=== PATIENT | female | born 1955 | race Caucasian/White ===

== ENCOUNTER 2023-08-11 08:23 | Inpatient (IN) | payer MEDICARE, SELFPAY ==
[2023-08-11] VITALS (44 sets, daily range): BP systolic 106–148; BP diastolic 40–108; PULSE 60–123; RESP 16–22; TEMP 36.1–37.2; O2SAT 83–97; BMI 23.5; BMI 25.6
--- NOTE | 2023-08-11 08:55 | CRLHL7_ITS ---
For Patients: As a result of the Century Cures Act, medical imaging exams and procedure reports are released immediately into your electronic medical record. You may view this report before your referring provider. If you have questions, please contact your health care provider. INDICATION: recent facial procedure, difficulty breathing for 2 days TECHNIQUE: CT soft tissue of the neck was acquired with IV contrast. COMPARISON: None. FINDINGS: Dental amalgam streak artifact and motion artifact limits evaluation of adjacent structures. Skull base: Unremarkable. Pharynx/Larynx/Trachea: Small soft tissue nodule involving the right lateral glossoepiglottic/aryepiglottic fold, measuring 8 x 4 mm (series 3, image 42). This results in mild effacement of the right vallecula. Airway is patent. Adjacent soft tissues are normal. Salivary glands: Unremarkable. Thyroid gland: Unremarkable. No significant nodules. Lymph nodes: No lymphadenopathy. Vessels: Atherosclerotic stenosis of the bilateral carotid bifurcations. Bones: Unremarkable for age. Misc: No inflammation, mass or fluid collection. Lung apices: Mild pulmonary emphysema. IMPRESSION: Dental amalgam streak artifact and motion artifact limits evaluation of adjacent structures. Small soft tissue nodule involving the right lateral glossoepiglottic/aryepiglottic fold, measuring 8 x 4 mm (series 3, image 42). This results in mild effacement of the right vallecula. Differential includes polyp or lesion. Recommend correlation with direct visualization. Otherwise, no evidence of acute abnormality. Findings discussed with Dr. Dejesus at 1040 am. Please note that all CT scans at this facility use dose modulation, iterative reconstruction, and/or weight-based dosing when appropriate to reduce radiation dose to as low as reasonably achievable. Dictated by Hector Vyas MD @ 08/11/2023 10:40:36 AM (Electronically Signed)
--- NOTE | 2023-08-11 08:56 | ED.NURSE ---
Patient sats dropped from 92% in triage to 86% in exam room. Patient wants to sit straight up and does not want oxygen at this time as she states she is too dry.
[2023-08-11 09:13] LABS: Basophils Absolute Auto 0.02 K/uL (0.00-0.30); Basophils Percent Auto 0.2 % (0.0-3.0); Hematocrit 45.6 % (33.0-51.0); Hemoglobin* 15.1 gm/dL (12.0-16.0); Immature Granulocytes Abs Auto 0.01 K/uL (0.00-0.30); Immature Granulocytes Pct Auto 0.1 %; Lymphocytes Percent Auto 11.7 % (20-44); Mean Corpuscular HGB Conc 33 gm/dL (32-36); Mean Corpuscular Hemoglobin 31 pg (26-34); Mean Corpuscular Volume 92 fL (80-100); Monocytes Percent Auto 6.8 % (0.0-11.0); Neutrophils Percent Auto 81.2 % (42.0-72.0); Platelet Count* 147 K/uL (140-440); RDW Coefficient of Variation % 13.4 % (11.5-15.5); Red Blood Count 4.95 m/uL (4.00-5.20); White Blood Count* 8.71 K/uL (4.50-11.00)
[2023-08-11 09:39] LABS: Slide Review Reflex No
[2023-08-11 09:41] LABS: Chloride* 98 mmol/L (96-114); Sodium* 137 mmol/L (135-149)
[2023-08-11 09:42] LABS: Potassium* 3.8 mmol/L (3.6-5.1)
[2023-08-11 09:44] LABS: Creatinine* 0.7 mg/dL (0.5-1.5); Est. Creatinine Clearance* 53.81; Estimated Glomerular Filt Rate 95 ml/min
[2023-08-11 09:45] LABS: Anion Gap 14 mEq/L (7-15); Blood Urea Nitrogen* 8 mg/dL (7-30); Calcium* 8.7 mg/dL (8.4-10.6); Carbon Dioxide* 25 mmol/L (20-32); Glucose* 124 mg/dL (60-115)
--- NOTE | 2023-08-11 10:10 | ED.GENADULT ---
HPI - General Adult General Chief complaint: Ear/Nose/Throat Problem Stated complaint: choking Time Seen by Provider: 08/11/23 08:27 Source: patient Mode of arrival: ambulatory Limitations: no limitations History of Present Illness HPI narrative: patient is 67-year-old female presenting to the emergency department for sore throat. She states about 11 days ago she had surgery on her left zygomatic region due to necrotic bone. She is said she recovered from the procedure well without issues. She knows now with past couple of days her throat has been feeling very tight in that she states is difficult to breathe. Symptoms have been getting worse for the past couple days. Her also notes that her voice has become more scratchy and sounds very different compared to her normal. Patient denies fevers, chills, chest pain, weakness, numbness, abdominal pain, lightheadedness, dizziness. Has never had issues with this before. she notes for the procedure she was not intubated and finished antibiotics 8 days ago. Related Data Allergies Allergy/AdvReac Type Severity Reaction Status Date / Time hydrocodone AdvReac Unknown Verified 08/11/23 08:32 Review of Systems Status of ROS: Reports: 10 or more systems reviewed and unremarkable except as noted in History and below PFSH PFSH Social History Non-prescribed substance use: denies use Exam Narrative: Exam Narrative: Const: Well-nourished, Well-developed, in mild distress Eyes: PERRL, no conjunctival injection, and symmetrical lids HENT: Atraumatic external nose and ears. Moist mucous membranes. uvula midline, normal appearing tonsils Neck: Symmetric, trachea midline, No thyromegaly. CVS: RRR, No murmurs or gallops. Peripheral pulses 2+ and equal in all extremities RESP: Mildly increased respiratory effort. Clear to auscultation bilaterally. GI: Nontender/Nondistended, No rebound or guarding. MSK:Extremities w/o deformity, Normal Active ROM Skin: Warm, Dry. No rashes or lesions. Neuro: Normal Muscle tone, No focal neurological deficits. Psych: Awake, Alert, & Oriented x3. Appropriate mood and affect. Const: Vital Signs, click to edit/add: Vital Signs - 24 hr 08/11/23 08:32 08/11/23 08:54 08/11/23 08:55 Temperature 99 F Pulse Rate 105 H Pulse Rate [Pulse Oximeter] 116 H Respiratory Rate 18 Blood Pressure Blood Pressure [Ri ght Upper Arm] 142/79 H Pulse Oximetry 92 90 89 Oxygen Delivery Me thod Room Air Oxygen Flow Rate 08/11/23 09:00 08/11/23 09:09 08/11/23 09:35 Temperature Pulse Rate 105 H 97 Pulse Rate [Pulse Oximeter] Respiratory Rate Blood Pressure 129/61 Blood Pressure [Ri ght Upper Arm] Pulse Oximetry 89 86 L 85 L Oxygen Delivery Me thod Oxygen Flow Rate 08/11/23 09:36 08/11/23 09:45 08/11/23 10:00 Temperature Pulse Rate 96 96 97 Pulse Rate [Pulse Oximeter] Respiratory Rate Blood Pressure Blood Pressure [Ri ght Upper Arm] Pulse Oximetry 86 L 85 L 87 L Oxygen Delivery Me thod Oxygen Flow Rate 08/11/23 10:02 08/11/23 10:15 08/11/23 10:30 Temperature Pulse Rate 95 107 H 102 H Pulse Rate [Pulse Oximeter] Respiratory Rate Blood Pressure 133/59 L Blood Pressure [Ri ght Upper Arm] Pulse Oximetry 87 L 91 90 Oxygen Delivery Me thod Oxygen Flow Rate 08/11/23 10:32 08/11/23 10:45 08/11/23 11:02 Temperature Pulse Rate 91 91 98 Pulse Rate [Pulse Oximeter] Respiratory Rate Blood Pressure 148/59 H 135/108 H Blood Pressure [Ri ght Upper Arm] Pulse Oximetry 85 L 89 90 Oxygen Delivery Me thod Oxygen Flow Rate 08/11/23 11:03 08/11/23 11:15 08/11/23 11:30 Temperature Pulse Rate 99 98 102 H Pulse Rate [Pulse Oximeter] Respiratory Rate Blood Pressure Blood Pressure [Ri ght Upper Arm] Pulse Oximetry 92 90 88 Oxygen Delivery Me thod Oxygen Flow Rate 08/11/23 11:31 08/11/23 11:45 08/11/23 12:00 Temperature Pulse Rate 101 H 99 98 Pulse Rate [Pulse Oximeter] Respiratory Rate Blood Pressure 140/58 H Blood Pressure [Ri ght Upper Arm] Pulse Oximetry 89 90 83 L Oxygen Delivery Me thod Oxygen Flow Rate 08/11/23 12:02 08/11/23 12:07 Temperature Pulse Rate 93 Pulse Rate [Pulse Oximeter] Respiratory Rate Blood Pressure 112/54 L Blood Pressure [Ri ght Upper Arm] Pulse Oximetry 85 L 92 Oxygen Delivery Me thod Nasal Cannula Oxygen Flow Rate 2 Course Vital Signs Vital signs: Initial Vital Signs Temperature 99 F 08/11/23 08:32 Temperature Source Temporal Artery Scan 08/11/23 08:32 Pulse Rate 116 H 08/11/23 08:32 Respiratory Rate 18 08/11/23 08:32 Blood Pressure 142/79 H 08/11/23 08:32 Blood Pressure Mean 100 08/11/23 08:32 Pulse Oximetry 92 08/11/23 08:32 Oxygen Delivery Method Room Air 08/11/23 08:32 Vital Signs Temperature 99 F 08/11/23 08:32 Pulse Rate 116 H 08/11/23 08:32 Respiratory Rate 18 08/11/23 08:32 Blood Pressure 142/79 H 08/11/23 08:32 Pulse Oximetry 92 08/11/23 08:32 Oxygen Delivery Method Room Air 08/11/23 08:32 Temperature 99 F 08/11/23 08:32 Pulse Rate 93 08/11/23 12:02 Respiratory Rate 18 08/11/23 08:32 Blood Pressure 112/54 L 08/11/23 12:02 Pulse Oximetry 92 08/11/23 12:07 Oxygen Delivery Method Nasal Cannula 08/11/23 12:07 Oxygen Flow Rate 2 08/11/23 12:07 Medications Administered Medications: Discontinued Medications Generic Name Dose Route Start Last Admin Trade Name Freq PRN Reason Stop Dose Admin Albuterol 5 mg 08/11/23 11:37 08/11/23 12:25 Albuterol Sulfate 2.5 Mg/3 Ml Vial.Neb NEB 08/11/23 11:38 5 mg ONCE ONE Administration Albuterol/Ipratropium 1 neb 08/11/23 10:41 08/11/23 11:10 Iprat-Albut 0.5-2.5 Mg/3 Ml Neb IH 08/11/23 10:42 1 neb ONCE ONE Administration Dexamethasone 10 mg 08/11/23 08:56 08/11/23 11:10 Dexamethasone 4 Mg/Ml Vial IV 08/11/23 08:57 10 mg ONCE ONE Administration Sodium Chloride 1,000 mls @ 1,000 mls/hr 08/11/23 10:30 08/11/23 11:39 0.9 % Sodium Chloride 1000 Ml IV 08/11/23 11:29 Infused .Q1H [facility] Infusion Medical Decision Making MDM Narrative Medical decision making narrative: Patient is a 67-year-old female presenting for shortness of breath. She states it feels like her throat is closing up witnesses began worse for the past couple days. At this point there is concern for deeper neck space issue or swelling. She again states it feels like it is all in her neck and throat fall her lungs feel fine. I will give her dexamethasone to help with any swelling if there is any. I do not see any signs of peritonsillar abscess. She is satting 88-89% on room air but will go up to 91% when she is not talking. Considering she does have an altered voice also we will do immediate CT scan of the neck with IV contrast. She has no history of kidney disease outside not concerned but that at this time. CT of the neck shows no acute concerning abnormalities. There is a small soft tissue nodule involving the right lateral glossoepiglottic/aryepiglottic fold that is not causing any airway compromise. Was brought to the patient again she says her neck is sore now and she still feels like her throat is closing up. There is no signs of deep neck space abscesses at this time so we will broaden our workup. She is a previous smoker and I did see some emphysema and a neck CT so we will order DuoNebs. Also ordered COVID/flu/RSV, mono, strep test. CBC and BMP showed no concerning abnormalities. [place] and strep were negative. Chest x-ray returned showing possible atelectasis versus pneumonia left lower lobe of her lungs. After DuoNeb she was feeling better but still satting low on room air. She is given another breathing treatment. She is currently satting 94% on 2 L nasal cannula. To better differentiate she has a superimposed pneumonia not a chest CT was ordered which showed atelectasis. Most likely all of her symptoms are secondary to COVID. She will be admitted to the hospitalist service Lab Data Labs: Lab Results 08/11/23 08/11/23 Range/Units 08:48 11:05 WBC 8.71 (4.50-11.00) K/uL RBC 4.95 (4.00-5.20) m/uL Hgb 15.1 (12.0-16.0) gm/dL Hct 45.6 (33.0-51.0) % MCV 92 (80-100) fL MCH 31 (26-34) pg MCHC 33 (32-36) gm/dL RDW Coeff of Talia 13.4 (11.5-15.5) % Plt Count 147 (140-440) K/uL Neut % (Auto) 81.2 H (42.0-72.0) % Lymph % (Auto) 11.7 L (20-44) % [place] % (Auto) 6.8 (0.0-11.0) % Eos % (Auto) 0.0 (0.0-7.0) % Baso % (Auto) 0.2 (0.0-3.0) % Neut # (Auto) 7.10 H (1.7-7.0) K/uL Lymph # (Auto) 1.00 (0.90-2.90) K/uL [place] # (Auto) 0.60 (0.00-0.90) K/UL Eos # (Auto) 0.00 (0.00-0.50) K/uL Baso # (Auto) 0.02 (0.00-0.30) K/uL Abs Immat Gran (auto) 0.01 (0.00-0.30) K/uL Imm/Tot Granulo (auto) 0.1 % Sodium 137 (135-149) mmol/L Potassium 3.8 (3.6-5.1) mmol/L Chloride 98 (96-114) mmol/L Carbon Dioxide 25 (20-32) mmol/L Anion Gap 14 (7-15) mEq/L BUN 8 (7-30) mg/dL Creatinine 0.7 (0.5-1.5) mg/dL Estimated Creat Clear 53.81 Estimated GFR 95 ml/min Glucose 124 H (60-115) mg/dL Calcium 8.7 (8.4-10.6) mg/dL SARS-CoV-2 (PCR) POSITIVE SARS-CoV-2 A (Negative) Monoscreen Negative (Negative) Influenza Type A (PCR) Negative PCR FLU A (Negative) Influenza Type B (PCR) Negative PCR FLU B (Negative) RSV (PCR) Negative PCR RSV (Negative) Group A Strep DNA NOT DETECTED (Not Detectd) Imaging Data Soft tissue neck CT: Radiologist's impression: Dental amalgam streak artifact and motion artifact limits evaluation of adjacent structures. Small soft tissue nodule involving the right lateral glossoepiglottic/aryepiglottic fold, measuring 8 x 4 mm (series 3, image 42). This results in mild effacement of the right vallecula. Differential includes polyp or lesion. Recommend correlation with direct visualization. Otherwise, no evidence of acute abnormality. Findings discussed with Dr. Dejesus at 1040 am. Please note that all CT scans at this facility use dose modulation, iterative reconstruction, and/or weight-based dosing when appropriate to reduce radiation dose to as low as reasonably achievable. Dictated by Hector Vyas MD @ 08/11/2023 10:40:36 AM Chest x-ray: Radiologist's impression: Atelectatic changes and/or infiltrates left lower lobe. Dictated by Jessika Dutta MD @ 08/11/2023 11:43:[address] scan - chest: Radiologist's impression: 1. Atelectatic changes left lung base. 2. No acute pneumonic infiltrates. 3. Negative unenhanced chest CT. Please note that all CT scans at this facility use dose modulation, iterative reconstruction, and/or weight-based dosing when appropriate to reduce radiation dose to as low as reasonably achievable. Dictated by Jessika Dutta MD @ 08/11/2023 1:35:40 PM Discharge Plan Discharge Follow Up/Referrals: Sasha Vargas MD [Primary Care Provider] -
[2023-08-11] MEDS: 0.9 % SODIUM CHLORIDE 1000 ml 1,000 ML IV (10:36)
--- NOTE | 2023-08-11 10:41 | CRLHL7_ITS ---
For Patients: As a result of the Cures Act, medical imaging exams and procedure reports are released immediately into your electronic medical record. You may view this report before your referring provider. If you have questions, please contact your health care provider. INDICATION: Shortness of breath. COMPARISON: CT neck for soft tissues with intravenous contrast same date. TECHNIQUE: Two-view chest. FINDINGS: Atelectatic changes and/or minimal infiltrates left lower lobe. Normal size cardiac silhouette. No evidence of pleural effusion. No evidence of CHF. IMPRESSION: Atelectatic changes and/or infiltrates left lower lobe. Dictated by Jessika Dutta MD @ 08/11/2023 11:43:55 AM (Electronically Signed)
[2023-08-11] MEDS: IPRAT-ALBUT 0.5-2.5 MG/3 ML NEB 1 NEB IH (11:10)
[2023-08-11] MEDS: dexAMETHasone 4 MG/ML VIAL 10 MG IV (11:10)
[2023-08-11 11:21] LABS: Mono Screen* Negative (Negative)
[2023-08-11 11:36] LABS: Strep A DNA Probe* NOT DETECTED (Not Detectd)
[2023-08-11 11:50] LABS: PCR FLU A Negative PCR FLU A (Negative); PCR FLU B Negative PCR FLU B (Negative); PCR RSV Negative PCR RSV (Negative)
[2023-08-11 12:01] LABS: SARS PCR* POSITIVE SARS-CoV-2 (Negative)
--- NOTE | 2023-08-11 12:11 | CRLHL7_ITS ---
For Patients: As a result of the Cures Act, medical imaging exams and procedure reports are released immediately into your electronic medical record. You may view this report before your referring provider. If you have questions, please contact your health care provider. INDICATION: Shortness of breath; COVID-19 pneumoniae; possible infiltrates. COMPARISON: CT chest without intravenous contrast September 18, 2018; CT soft tissue neck with intravenous contrast 08/11/2023; two-view chest 08/11/2023. TECHNIQUE: CT chest without intravenous contrast; coronal and sagittal reformats. FINDINGS: No abnormal mediastinal or hilar lymphadenopathy. Coronary artery calcifications. Normal size cardiac silhouette without any pericardial effusion. Platelike atelectasis left lung base. No obvious pneumonic infiltrates on either side. No pneumothorax or pleural effusion. Limited CT through the upper abdomen is unremarkable. IMPRESSION: 1. Atelectatic changes left lung base. 2. No acute pneumonic infiltrates. 3. Negative unenhanced chest CT. Please note that all CT scans at this facility use dose modulation, iterative reconstruction, and/or weight-based dosing when appropriate to reduce radiation dose to as low as reasonably achievable. Dictated by Jessika Dutta MD @ 08/11/2023 1:35:40 PM (Electronically Signed)
[2023-08-11] MEDS: ALBUTEROL SULFATE 2.5 MG/3 ML VIAL.NEB 5 MG NEB (12:25)
--- NOTE | 2023-08-11 14:55 | PM.IMHP1 ---
Hospitalist- H&P: [facility] History of Present Illness Date Seen: 08/11/23 Chief complaint: choking Narrative: Delphine Padilla is a 67 year old female admitted through the emergency department with 2 to 3 day history of illness. she was in her usual state of good health until Sunday evening when she had some chills. morning she woke up and she reported that she had a bad sore throat. It continued to get worse over the subsequent 2 days. She did not check her temperature. She did develop a little bit of cough. She has not been short of breath. her sore throat has continued to worsen and she has not been able to eat or drink due to a sore throat. When she tries to eat she feels like she swallows food or liquid and it gets into her throat and then she just brings it back up again. She has not otherwise had vomiting. She does not have abdominal pain. She does not feel like she is having trouble breathing or tightness in her airway. She has some hoarseness in her voice. She reports she is generally healthy. She does not have a diagnosis of heart or lung disease. No previous history of thromboembolism. She does have a 30 year history of smoking and quit about 15 years ago. Initial emergency department evaluation included CT of the soft tissues of the neck to evaluate the report of severe throat and swallowing difficulties. This did show a small 4 x 8 mm lesion in the glosso epiglottic fold but no obstruction and no other acute abnormality. Chest CT showed no acute abnormalities. She was seen to be persistently hypoxic requiring supplemental oxygen. COVID test was positive. She was unable to tolerate any oral food or fluid. 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 Bone was resected and replaced with filler material. She was treated with penicillin for 10 days after this. She reports feeling fine with no symptoms of pain from that. Review of Systems Narrative: Other than the symptoms of the last 2-3 days she reports she was generally feeling well recently. Review of medical records indicates he has had a previous history of lymphoma and hypothyroidism. Not getting treatment for either of those now. [facility] Medical History (Updated 08/11/23 @ 15:25 by Lamont Weber MD) History of diverticulitis ?Z87.19 - Personal history of other diseases of the digestive system (ICD-10) Hypothyroidism ?E03.9 - Hypothyroidism, unspecified (ICD-10) Large B-cell lymphoma ?C85.10 - Unspecified B-cell lymphoma, unspecified site (ICD-10) Surgical History (Updated 08/11/23 @ 15:18 by Lamont Weber MD) History of abdominal hysterectomy ?Z90.710 - Acquired absence of both cervix and uterus (ICD-10) Social History (Updated 08/11/23 @ 15:19 by Lamont Weber MD) Narrative: she lives with her in [place]. She quit smoking about 15 years ago after a 30 pack-year history. She does not drink alcohol. Code status is DNR. is healthcare power of trade mark attorney. Non-prescribed substance use: denies use Meds Home Medications and Allergies Allergies Allergy/AdvReac Type Severity Reaction Status Date / Time hydrocodone AdvReac Unknown Verified 08/11/23 08:32 Exam Narrative: Exam Narrative: She is alert and appears in no distress. Mild hoarseness to her voice noted. No stridor or respiratory distress. Eyes normal. No facial asymmetry. Oropharynx is unremarkable. Minimal erythema the posterior oropharynx. Open airway. No stridor. Neck is supple with tenderness bilaterally in her proximal anterior cervical nodes but without obvious adenopathy. No other mass. Respirations are clear to auscultation. No wheezing rales or rhonchi. Cardiovascular: S1, S2, regular rate and rhythm. No murmur gallop or rub. Abdomen: Bowel sounds active. Abdomen is soft without tenderness or mass. External genitalia normal. Extremities normal. She has intact pulses and sensation. Good capillary refill. She moves all 4 extremities well. No rash. No edema. Const: Vital Signs, click to edit/add: Vital Signs - 24 hr 08/11/23 08:32 08/11/23 08:54 08/11/23 08:55 Temperature 99 F Pulse Rate 105 H Pulse Rate [Pulse Oximeter] 116 H Respiratory Rate 18 Blood Pressure Blood Pressure [Ri ght Upper Arm] 142/79 H Pulse Oximetry 92 90 89 Oxygen Delivery Me thod Room Air Oxygen Flow Rate 08/11/23 09:00 08/11/23 09:09 08/11/23 09:35 Temperature Pulse Rate 105 H 97 Pulse Rate [Pulse Oximeter] Respiratory Rate Blood Pressure 129/61 Blood Pressure [Ri ght Upper Arm] Pulse Oximetry 89 86 L 85 L Oxygen Delivery Me thod Oxygen Flow Rate 08/11/23 09:36 08/11/23 09:45 08/11/23 10:00 Temperature Pulse Rate 96 96 97 Pulse Rate [Pulse Oximeter] Respiratory Rate Blood Pressure Blood Pressure [Ri ght Upper Arm] Pulse Oximetry 86 L 85 L 87 L Oxygen Delivery Me thod Oxygen Flow Rate 08/11/23 10:02 08/11/23 10:15 08/11/23 10:30 Temperature Pulse Rate 95 107 H 102 H Pulse Rate [Pulse Oximeter] Respiratory Rate Blood Pressure 133/59 L Blood Pressure [Ri ght Upper Arm] Pulse Oximetry 87 L 91 90 Oxygen Delivery Me thod Oxygen Flow Rate 08/11/23 10:32 08/11/23 10:45 08/11/23 11:02 Temperature Pulse Rate 91 91 98 Pulse Rate [Pulse Oximeter] Respiratory Rate Blood Pressure 148/59 H 135/108 H Blood Pressure [Ri ght Upper Arm] Pulse Oximetry 85 L 89 90 Oxygen Delivery Me thod Oxygen Flow Rate 08/11/23 11:03 08/11/23 11:15 08/11/23 11:30 Temperature Pulse Rate 99 98 102 H Pulse Rate [Pulse Oximeter] Respiratory Rate Blood Pressure Blood Pressure [Ri ght Upper Arm] Pulse Oximetry 92 90 88 Oxygen Delivery Me thod Oxygen Flow Rate 08/11/23 11:31 08/11/23 11:45 08/11/23 12:00 Temperature Pulse Rate 101 H 99 98 Pulse Rate [Pulse Oximeter] Respiratory Rate Blood Pressure 140/58 H Blood Pressure [Ri ght Upper Arm] Pulse Oximetry 89 90 83 L Oxygen Delivery Me thod Oxygen Flow Rate 08/11/23 12:02 08/11/23 12:03 08/11/23 12:07 Temperature Pulse Rate 93 95 Pulse Rate [Pulse Oximeter] Respiratory Rate Blood Pressure 112/54 L Blood Pressure [Ri ght Upper Arm] Pulse Oximetry 85 L 88 92 Oxygen Delivery Me thod Nasal Cannula Oxygen Flow Rate 2 08/11/23 12:15 08/11/23 12:30 08/11/23 12:32 Temperature Pulse Rate 100 100 102 H Pulse Rate [Pulse Oximeter] Respiratory Rate Blood Pressure 132/48 L Blood Pressure [Ri ght Upper Arm] Pulse Oximetry 94 93 92 Oxygen Delivery Me thod Oxygen Flow Rate 08/11/23 12:45 08/11/23 13:00 08/11/23 13:02 Temperature Pulse Rate 111 H 123 H 121 H Pulse Rate [Pulse Oximeter] Respiratory Rate Blood Pressure 130/59 L Blood Pressure [Ri ght Upper Arm] Pulse Oximetry 95 97 95 Oxygen Delivery Me thod Oxygen Flow Rate 08/11/23 13:15 08/11/23 13:30 08/11/23 13:32 Temperature Pulse Rate 107 H 114 H 107 H Pulse Rate [Pulse Oximeter] Respiratory Rate Blood Pressure 147/73 H Blood Pressure [Ri ght Upper Arm] Pulse Oximetry 92 94 94 Oxygen Delivery Me thod Oxygen Flow Rate 08/11/23 13:45 08/11/23 14:00 08/11/23 14:02 Temperature Pulse Rate 96 96 94 Pulse Rate [Pulse Oximeter] Respiratory Rate Blood Pressure 117/49 L Blood Pressure [Ri ght Upper Arm] Pulse Oximetry 89 95 92 Oxygen Delivery Me thod Oxygen Flow Rate 08/11/23 14:15 Temperature Pulse Rate 98 Pulse Rate [Pulse Oximeter] Respiratory Rate Blood Pressure Blood Pressure [Ri ght Upper Arm] Pulse Oximetry 93 Oxygen Delivery Me thod Oxygen Flow Rate Documenting provider has reviewed patient's vital signs: yes Hospitalist - H&P: Result Labs Labs: Short CBC 08/11/23 Range/Units 08:48 WBC 8.71 (4.50-11.00) K/uL Hgb 15.1 (12.0-16.0) gm/dL Hct 45.6 (33.0-51.0) % Plt Count 147 (140-440) K/uL [facility] 08/11/23 08:48 Sodium 137 Potassium 3.8 Chloride 98 Carbon Dioxide 25 BUN 8 Creatinine 0.7 Glucose 124 H Calcium 8.[address]- Other: Radiologist's impression: INDICATION: recent facial procedure, difficulty breathing for 2 days TECHNIQUE: CT soft tissue of the neck was acquired with IV contrast. COMPARISON: None. FINDINGS: Dental amalgam streak artifact and motion artifact limits evaluation of adjacent structures. Skull base: Unremarkable. Pharynx/Larynx/Trachea: Small soft tissue nodule involving the right lateral glossoepiglottic/aryepiglottic fold, measuring 8 x 4 mm (series 3, image 42). This results in mild effacement of the right vallecula. Airway is patent. Adjacent soft tissues are normal. Salivary glands: Unremarkable. Thyroid gland: Unremarkable. No significant nodules. Lymph nodes: No lymphadenopathy. Vessels: Atherosclerotic stenosis of the bilateral carotid bifurcations. Bones: Unremarkable for age. Misc: No inflammation, mass or fluid collection. Lung apices: Mild pulmonary emphysema. IMPRESSION: Dental amalgam streak artifact and motion artifact limits evaluation of adjacent structures. Small soft tissue nodule involving the right lateral glossoepiglottic/aryepiglottic fold, measuring 8 x 4 mm (series 3, image 42). This results in mild effacement of the right vallecula. Differential includes polyp or lesion. Recommend correlation with direct visualization. Otherwise, no evidence of acute abnormality. CT scan - chest: Radiologist's impression: INDICATION: Shortness of breath; COVID-19 pneumoniae; possible infiltrates. COMPARISON: CT chest without intravenous contrast September 18, 2018; CT soft tissue neck with intravenous contrast 08/11/2023; two-view chest 08/11/2023. TECHNIQUE: CT chest without intravenous contrast; coronal and sagittal reformats. FINDINGS: No abnormal mediastinal or hilar lymphadenopathy. Coronary artery calcifications. Normal size cardiac silhouette without any pericardial effusion. Platelike atelectasis left lung base. No obvious pneumonic infiltrates on either side. No pneumothorax or pleural effusion. Limited CT through the upper abdomen is unremarkable. IMPRESSION: 1. Atelectatic changes left lung base. 2. No acute pneumonic infiltrates. 3. Negative unenhanced chest CT. Assessment and Plan Assessment and plan (1) COVID: Problem comment: this is likely the cause of her acute symptoms. Because she is hypoxic will treat with dexamethasone and Remdesivir. Status: Acute (2) Hypoxia: Problem comment: Probably due to COVID but may have some underlying COPD. Status: Acute (3) Vomiting: Problem comment: Appears to be related to severe sore throat. Continue to monitor. IV fluids for now. Status: Acute (4) Pharyngitis: Problem comment: Fairly severe pharyngitis but no evidence of airway obstruction. Conservative management. Status: Acute Plan Patient is admitted the hospital for management of hypoxia and inability to swallow. Anticipate this will get better in the next 1-2 days. If not may need ENT evaluation of her throat. Total time spent is 75 minutes, 50 minutes in coordination of care discussing with patient and other providers ongoing evaluation management of pharyngitis and COVID
[2023-08-11] MEDS: LACTATED RINGERS 1000 ML 1,000 ML 100 ML IV (15:43)
[2023-08-11] MEDS: KETOROLAC 30 MG/ML inj 15 MG IVP (16:07)
[2023-08-11 16:30] LABS: C Reactive Protein* 5.6 mg/dL (0.5-1.0)
[2023-08-11] MEDS: phenoL 1.4 % THROAT SPRAY 1 SPRAY MUCOUS MEM (18:00)
[2023-08-11] MEDS: ENOXAPARIN 40 MG/0.4 ML INJ SUBCUT (20:07)
[2023-08-12] VITALS (8 sets, daily range): BP systolic 106–125; BP diastolic 48–68; PULSE 59–82; RESP 12–20; TEMP 36.4–36.9; O2SAT 91–98
[2023-08-12] MEDS: LACTATED RINGERS 1000 ML 1,000 ML 100 ML IV ×3 (01:29→23:56)
[2023-08-12] MEDS: KETOROLAC 30 MG/ML inj 15 MG IVP ×3 (01:39→19:19)
--- NOTE | 2023-08-12 06:38 | PC.NURSE ---
Pt alert and oriented x3. Afebrile. Pt reports 8/10 pain in throat, pain managed with PRN medications. Pt made several attempt to try taking sips of water but pt did not tolerate well, pt spit water back up into napkin. Pt states My saliva and this water just don't go down. Pt was on 2L of oxygen at beginning of shift with O2 stats ranging between 88-90%, over the course of the night pt O2s stats increased to 96-100% pt was weaned down to 0.5 L of oxygen and has been tolerating with O2 stats 89-92%. Pt is up ad alyssa in room and slept intermittently throughout night.
[2023-08-12] MEDS: DIPHEN/LIDO/ALUM/MAG/SIMETH 5 ML SUSPENSION MUCOUS MEM ×3 (13:07→23:58)
[2023-08-12] MEDS: METHYLPREDNISOLONE SOD SUCC 62.5 MG/ML (125) 125 MG IVP (13:11)
[2023-08-12] MEDS: SODIUM CHLORIDE 0.9 % (FLUSH) 10 ML SYRINGE IVF (13:13)
--- NOTE | 2023-08-12 16:37 | PM.IMPN1 ---
Progress Note: A&P Assessment and plan (1) COVID: Problem details: this is likely the cause of her acute symptoms. Because she was hypoxic will treat with dexamethasone and Remdesivir. Status: Acute (2) Hypoxia: Problem details: Probably due to COVID but may have some underlying COPD. No longer hypoxic as of 08/12/2023. Status: Acute (3) Vomiting: Problem details: Appears to be related to severe sore throat. Continue to monitor. IV fluids for now. Status: Acute (4) Pharyngitis: Problem details: - Fairly severe pharyngitis but no evidence of airway obstruction. Conservative management. - magic mouthwash q.4 hours p.r.n. Status: Acute Plan 1. Reviewed impression with patient and . 2. Answered their questions. 3. There agree with above stated plans and recommendations. Time Spent With Patient Total time spent: 35 minutes Subjective Date Seen: 08/12/23 Interval history: Hospital day 2. Her biggest concern is the odynophagia. Every time she swallows she states she has discomfort. Breathing is less problematic. Cough less problematic. Even her strength is slowly improving. Exam Narrative: Exam Narrative: No longer requiring oxygen supplementation. Examined patient in her hospital room. Alert and oriented to person, place, time, situation. Appears comfortable and in no acute distress when sitting or standing. Lungs with scattered rhonchi without wheezing or rales. Heart tones with regular rhythm. Abdomen with active bowel sounds, soft, nontender. Oropharynx with injected posterior pharynx without purulence or swelling. Independent transfer, station, and gait. No focal motor neurologic deficits. Skin is warm, dry, intact. No lower extremity edema. Capillary refill less than 3 seconds. Const: Vital Signs, click to edit/add: Vital Signs - 24 hr 08/11/23 21:00 08/11/23 22:15 08/11/23 22:15 Temperature 97.8 F 97.6 F Pulse Rate [Apical ] 78 60 Respiratory Rate 18 16 16 Blood Pressure [Le ft Arm] Blood Pressure [Ri ght Arm] 106/40 L 117/55 L Pulse Oximetry 90 93 Oxygen Delivery Me thod Nasal Cannula Nasal Cannula Oxygen Flow Rate 2 2 08/12/23 02:01 08/12/23 08:09 08/12/23 08:09 Temperature 97.7 F 97.5 F L Pulse Rate [Apical ] 80 67 67 Respiratory Rate 16 12 12 Blood Pressure [Le ft Arm] 120/68 Blood Pressure [Ri ght Arm] 122/54 L Pulse Oximetry 93 98 Oxygen Delivery Me thod Nasal Cannula Room Air Oxygen Flow Rate 1 08/12/23 08:09 08/12/23 11:01 08/12/23 15:00 Temperature 98.1 F 98.5 F Pulse Rate [Apical ] 59 L 61 Respiratory Rate 12 16 20 Blood Pressure [Le ft Arm] 125/59 L Blood Pressure [Ri ght Arm] 107/64 Pulse Oximetry 98 92 91 Oxygen Delivery Me thod Room Air Room Air Room Air Oxygen Flow Rate 08/12/23 15:00 08/12/23 15:00 Temperature Pulse Rate [Apical ] 61 Respiratory Rate 20 20 Blood Pressure [Le ft Arm] Blood Pressure [Ri ght Arm] Pulse Oximetry 91 Oxygen Delivery Me thod Room Air Oxygen Flow Rate Documenting provider has reviewed patient's vital signs: yes Labs Labs: Laboratory Results - last 24 hr 08/11/23 08:48 TSH 1.760
[2023-08-12] MEDS: SODIUM CHLORIDE 0.9 % (FLUSH) 10 ML SYRINGE 5 ML IVF (19:21)
[2023-08-12] MEDS: ENOXAPARIN 40 MG/0.4 ML INJ SUBCUT (19:21)
[2023-08-13 04:00] VITALS: BP 119/61; PULSE 70; RESP 16; TEMP 36.6; O2SAT 96
[2023-08-13] MEDS: DIPHEN/LIDO/ALUM/MAG/SIMETH 5 ML SUSPENSION MUCOUS MEM ×2 (06:23→12:44)
--- NOTE | 2023-08-13 07:10 | PC.NURSE ---
Shift note: O2 sats 96% on 1L O2 NC, pt is independent in the room, throat pain treated with oral solution with relief, no other complains during this shift
[2023-08-13 07:15] VITALS: O2SAT 94
[2023-08-13 07:49] VITALS: BP 151/73; PULSE 71; RESP 18; TEMP 36.4; O2SAT 92
[2023-08-13] MEDS: dexAMETHasone 4 MG/ML VIAL IV (08:33)
[2023-08-13] MEDS: SODIUM CHLORIDE 0.9 % (FLUSH) 10 ML SYRINGE 5 ML IVF (08:34)
[2023-08-13 11:16] VITALS: BP 144/71; PULSE 70; RESP 16; TEMP 36.4; O2SAT 90
--- NOTE | 2023-08-13 14:05 | PC.NURSE ---
Shift Summary: Patient pleasant and cooperative. Up independently, o2 sats >90% on RA. Discontinued continuous pulse ox and IVF. Lung sounds clear, continues to have sore throat and productive cough.
[2023-08-13 15:19] VITALS: BP 135/75; PULSE 64; RESP 16; TEMP 37.1; O2SAT 88
--- NOTE | 2023-08-13 17:13 | PC.NURSE ---
Discharge: Patient pleasant and cooperative. Patient vitally stable, lungs clear, BS WNL, IV removed, catheter intact. Patient rates throat pain 2/10. Patient independent. Patient tolerating regular diet and urinating. Patient signed belongings sheet and discharge form. Patient had no further questions regarding discharge. Patient left the floor by foot to home at 1648.
--- NOTE | 2023-08-16 16:49 | P.DS_ITS ---
DS: Providers Provider Date Seen: 08/13/23 Date of admission: 08/11/23 15:02 Primary care physician: Sasha Vargas MD Admitting Clinician: Horacio Robbins MD Attending Physician on discharge: Horacio Robbins MD Date of Discharge: 08/13/23 DS: Diagnosis Discharge Diagnosis (1) COVID: Status: Acute Problem details: this is likely the cause of her acute symptoms. Because she was hypoxic will treat with dexamethasone and Remdesivir. (2) Pharyngitis: Status: Acute Problem details: - Fairly severe pharyngitis but no evidence of airway obstruction. Conservative management. - magic mouthwash q.4 hours p.r.n. (3) Hypoxia: Status: Acute Problem details: Probably due to COVID but may have some underlying COPD. No longer hypoxic as of 08/12/2023. (4) Vomiting: Status: Acute Problem details: Appears to be related to severe sore throat. Continue to monitor. IV fluids for now. DS: Summary Hospital Course Hospital Course: See above brief summary. Her primary problem was sore throat. Determined related to COVID-19. Treated with remdesivir. Treated with dexamethasone. Odynophagia was problematic. Ultimately were warranted the use of Magic mouthwash and then she was able to eat and drink better. Did recommend she have follow-up with her primary care physician including in regard to the findings on the CT scan of the soft tissue of the neck. May warrant ENT consultation. Status at Discharge Functional status at discharge: independent ambulation Overall status at discharge: patient is progressing back to baseline Time Spent with Patient Time attestation: Total time spent providing and/or coordinating discharge services: Time spent: Greater than 30 minutes Exam Narrative: Exam Narrative: No longer requiring oxygen supplementation. Examined patient in her hospital room. Alert and oriented to person, place, time, situation. Appears comfortable and in no acute distress when sitting or standing. Lungs with scattered rhonchi without wheezing or rales. Heart tones with regular rhythm. Abdomen with active bowel sounds, soft, nontender. Oropharynx mildly injected posterior pharynx without purulence or swelling. Able to swallow liquid and food now. Independent transfer, station, and gait. No focal motor neurologic deficits. Skin is warm, dry, intact. No lower extremity edema. Capillary refill less than 3 seconds. DS: Data Imaging CT of soft tissue of neck: Radiologist's impression: IMPRESSION: Dental amalgam streak artifact and motion artifact limits evaluation of adjacent structures. Small soft tissue nodule involving the right lateral glossoepiglottic/aryepiglottic fold, measuring 8 x 4 mm (series 3, image 42). This results in mild effacement of the right vallecula. Differential includes polyp or lesion. Recommend correlation with direct visualization. Otherwise, no evidence of acute abnormality. CT scan - chest: Radiologist's impression: IMPRESSION: 1. Atelectatic changes left lung base. 2. No acute pneumonic infiltrates. 3. Negative unenhanced chest CT. Discharge Plan Discharge Disposition: Home, Self-Care Date of Admission: 08/11/23 15:02 Attending Provider on Discharge: Horacio Robbins Primary Care Provider: Sasha Vargas Condition: Improved Anticipated Discharge Date/Time: 08/13/23 16:00 Discharge Medications: New Diphen/Lido/Alum/Mag/Simeth [First-Mouthwash Blm] 5 ml mucous membrane Q4H PRN7 Days Qty: 119 1RF Discharge Orders: Discharge Order (Routine); Ordered 08/13/23 Ordered By: Horacio Robbins Patient Education: Lidocaine (Into the mouth) (Xylocaine, First-BXN Mouthwash,..., COVID-19 (Coronavirus Disease 2019) (DC), COVID-19: Slow the Coronavirus Spread (DC), Face Coverings (Masks) and COVID-19 (DC), Safely Care for Someone Who Has COVID-19 (GEN), How to Recover from COVID-19 at Home (ED), Social Distancing Guidelines for COVID-19 (DC) Additional Instructions: 1. Isolation for a minimum of 10 days from the onset of your COVID symptoms; 2. Consider COVID vaccine when you see your physician in follow-up in about 2 weeks; 3. Return to clinic or hospital sooner if your condition warrants. Activity Level: No Restrictions and Activity as Tolerated Discharge Diet: Regular Follow Up Appointments: Ruchi Tuttle DO [Referring] - 08/22/23 1:50 pm ([facility], [place] for follow up.) Sasha Vargas MD [Primary Care Provider] - (2 weeks) Forms: [employer] Info Instructions
== END 2023-08-13 16:48 | disposition home or self-care (01) | DRG 179 ==
LOC: ED 14:14 → MEDSURG 15:01
PROVIDERS: Admitting Provider Internal Medicine; Emergency Provider Student in an Organized Health Care Education/Training Program; PCP Internal Medicine; Visit Provider Family Medicine
DX: U07.1 COVID-19 (principal); R09.02 Hypoxemia; J02.8 Acute pharyngitis due to other specified organisms; R49.0 Dysphonia; R11.11 Vomiting without nausea; Z87.891 Personal history of nicotine dependence; Z85.72 Personal history of non-Hodgkin lymphomas
CPT/HCPCS: 36415; 70491; 71046; 71250; 80048; 84443; 85025; 86140; 86308; 87631; 87651; 94640; 94761; 99283; 99284; A9270; J1100; J1650; J1885; J2930; J7030; J7050; J7120; Q9967